=== PATIENT | female | born 1955 | race Caucasian/White ===

== ENCOUNTER 2016-11-30 11:45 | Emergency (ER) | payer OTHER ==
[~2016-11-30] VITALS: Ht 165.1 cm; Wt 68.2 kg
[2016-11-30 12:09] VITALS: BP 129/80; PULSE 73; RESP 18; O2SAT 96
[2016-11-30] MEDS ORDERED: 0.9% Sodium Chloride 1,000 ML IV ONE (12:33)
--- NOTE | 2016-11-30 12:33 | ED.REPORT ---
HPI-General Illness Date of Service Nov 30, 2016 ED Provider: Dr. Soriano 61 year old female with nausea, cough and fever for 3 days. 2 days ago she developed vomiting and has been unable to keep down food and fluids. Pt reports dizziness with standing. She also complains of malaise and fatigue. Nursing Notes Stated Complaint: COUGH, FEVER Chief Complaint: FLU/Cold Symptoms Nursing Notes Reviewed: Yes Allergies: Coded Allergies: No Known Allergies (Unverified Allergy, Unknown, 04/15/14) Scheduled Ondansetron (Ondansetron) 8 Mg Tablet 8 MG PO TID General Time Seen by MD: 12:33 Chief Complaint Fever Hx Obtained From: Patient Arrived By: Walk-in Onset Occurred: 3 days ago Symptom Duration: Since onset Quality: Painful (diffuse) Severity: Current: Moderate Associated with: Denies: Chest pain, Shortness of breath Pertinent Negative: Relieved by nothing Past Medical History Past Medical History Pneumonia, otherwise no significant past medical history. Past Surgical History None reported Smoking History Never Smoker Social History Alcohol Use: Denies alcohol use Drug Use: Denies drug use Ambulatory Status Independent Review of Systems Full Review of Systems Constitutional: Reports: Fatigue, Fever Respiratory: Reports: Non-productive cough, Denies: Shortness of breath Cardiovascular: Denies: Chest pain GI: Reports: Nausea, Vomiting Skin: Denies Rash Neurologic: Denies: Change LOC Complete sys rev & neg: except as marked. Physical Exam Vital Signs Vital Signs Date Time Temp Pulse Resp B/P Pulse Ox O2 Delivery O2 Flow Rate FiO2 11/30/16 15:53 38.1 54 15 123/77 95 11/30/16 12:09 37.8 73 18 129/80 96 Room Air Initial VS: Reviewed Head / Eyes: Atraumatic, Normocephalic, PERRL Neck: Full range of motion Extremities: Vascular intact, Neuro intact, No swelling (No edema), No tenderness Skin: Warm, Dry, No cyanosis Neurologic: Alert, Oriented, Nonfocal Psychiatric: Mood/affect normal, Behavior normal, Normal thought content General/Constitutional: Awake, Alert Appears fatigued ENT: Airway patent Mouth: Positive: Mucous membranes dry Respiratory / Chest: Breath sounds NL, No respiratory distress, No rales, No rhonchi, No wheezing Cardiovascular: Regular rhythm, Heart sounds NL, Cap refill not delayed, Peripheral circulation NL Heart Rate / Rhythm: Positive: Tachycardia (mildly) Abdomen: Soft, Non-tender, No guarding, No rebound Interpretation & Diagnostics Lab Results Interpretation Result Diagram: 11/30/16 1245 11/30/16 1245 Test 11/30/16 12:45 White Blood Count 6.0th/mm3 (3.8-10.1) Red Blood Count 4.63mil/mm3 (3.90-5.20) Hemoglobin 14.2g/dL (12.0-15.6) Hematocrit 42.2% (35.0-46.0) Mean Corpuscular Volume 91.1fL (81-100) Mean Corpuscular Hemoglobin 30.7pg (27.0-35.0) Mean Corpuscular Hemoglobin Concent 33.6% (32.0-37.0) Red Cell Distribution Width 13.9% (12.3-15.4) Platelet Count 154bil/L (150-400) Neutrophils (%) (Auto) 77.0% (40-74) Lymphocytes (%) (Auto) 11.4% (14-46) Monocytes (%) (Auto) 11.4% (4-12) Eosinophils (%) (Auto) 0% (0-5) Basophils (%) (Auto) 0.2% (0-3) Sodium Level 140mEq/L (134-144) Potassium Level 4.0mEq/L (3.5-5.2) Chloride Level 99mEq/L (97-108) Carbon Dioxide Level 27mmol/L (18-29) Blood Urea Nitrogen 12mg/dL (8-27) Creatinine 0.58mg/dL (0.57-1.00) Estimat Glomerular Filtration Rate 151mL/min (>59) Glucose Level 94mg/dL (60-99) Calcium Level 8.9mg/dL (8.5-10.1) Magnesium Level 1.9mg/dL (1.6-2.6) Total Bilirubin 0.4mg/dL (0.0-1.2) Aspartate Amino Transf (AST/SGOT) 21U/L (0-50) Alanine Aminotransferase (ALT/SGPT) 13U/L (0-32) Alkaline Phosphatase 55U/L (25-165) Troponin T < 0.010ug/L (0.0-0.011) Total Protein 6.9g/dL (6.4-8.4) Albumin 3.9g/dL (3.4-5.0) Lipase 27U/L (13-60) Hold Arias Top Tube Received (Received) Lab Results Interpretation: + Flu A ECG Interpretation Time: 12:50 Interpreted by: ED physician Normal ECG Interpretation: Normal rate (65), Normal sinus rhythm, No acute ischemic changes Re-Eval/Medical Decision Time of Eval: 13:43 Re-Evaluation/Progress Note: Pt updated of labs. Discussed plan for discharge and follow up. All questions addressed. Counseled Regarding: Diagnosis, Lab results, Need for follow-up, When/why to return to ED Discharge & Departure Primary Impression: Influenza Disposition: Home Discharge Condition All VS Reviewed: Yes Condition: Improved Patient Instructions: Acute Nausea and Vomiting (ED), Influenza (ED) Additional Instructions: You can use Zofran as directed for nausea and vomiting. Your labs are reasurring. You do have Influenza. Try and keep the fluids in. I hope you feel better soon! Referrals: Johana Becerra (PCP) (Family) Scribe Attestation Portions of this note were transcribed by Camille Quevedo. I, (Thea Soriano MD ) personally performed the history, physical exam and medical decision-making; I reviewed and confirmed the accuracy of the information in the transcribed note. Signed by: Camille Quevedo. 11/30/2016, 3639 copies to: Johana Becerra Shawna L MD Nov 30, 2016 12:33 Camille Quevedo Nov 30, 2016 13:48
[2016-11-30] MEDS ORDERED: Ondansetron 2 mg/mL 2 mL Inj IVPUSH ONE (12:35)
[2016-11-30] MEDS ORDERED: Ondansetron 2 mg/mL 2 mL Inj IVPUSH PRN (12:35)
[2016-11-30 12:54] LABS: BASOPHILS % (AUTO) 0.2 % (0-3); EOSINOPHILS % (AUTO) 0 % (0-5); MONOCYTES % (AUTO) 11.4 % (4-12); Mean Corpuscular Hemoglobin 30.7 pg (27.0-35.0); Mean Corpuscular Volume 91.1 fL (81-100); Platelet Count 154 bil/L (150-400)
--- NOTE | 2016-11-30 13:02 | DRSVH ---
PROCEDURE: X-RAY CHEST, TWO VIEWS ([id number]) INDICATIONS: COUGH, FEVER TECHNIQUE: 2 views of the chest were acquired. COMPARISON: 01/24/2010 FINDINGS: Surgical changes and devices: None. Lungs and pleura: No pleural effusions or pneumothorax. Lungs are clear. Mediastinum: Mediastinal contours are normal. Heart size is normal. Bones and chest wall: There is a 3.3 cm rim calcification overlying the gastric air bubble beneath t he left hemidiaphragm. This is far posterior on the lateral view. It appears unchanged from the 2010 exam. No suspicious bony abnormalities. Soft tissues appear unremarkable. IMPRESSION: 1. No acute cardiopulmonary abnormality. 2. Chronic rim calcification left upper quadrant posteriorly. The finding could represent calcified a drenal adenoma, exophytic renal cyst, pancreatic cyst, gastric diverticulum or calcified aneurysm. Dictated by: Brayan Mann M.D. on 11/30/2016 at 13:00 Approved by: Brayan Mann M.D. on 11/30/2016 at 13:00
[2016-11-30 13:30] LABS: Lipase 27 U/L (13-60); Magnesium 1.9 mg/dL (1.6-2.6)
[2016-11-30 13:34] LABS: TROPONIN T < 0.010 ug/L (0.0-0.011)
[2016-11-30] MEDS ORDERED: Ondansetron 8 mg ODT Tablet PO ONE (13:50)
[2016-11-30] MEDS ORDERED: ONDA-54 PO (15:52)
[2016-11-30 15:53] VITALS: BP 123/77; PULSE 54; RESP 15; O2SAT 95
== END 2016-11-30 16:30 | disposition home or self-care (01) ==
LOC: EDBD 11:45 → SED 11:45 → EDUNIT# 11:45 → SED 16:30
DX: J11.1 Influenza due to unidentified influenza virus with other respiratory manifestations (principal)
CPT/HCPCS: 36415; 71020; 80053; 83690; 83735; 84484; 85025; 87804; 93005; 96360; 99285; J7030

== ENCOUNTER 2017-08-21 06:13 | Emergency (ER) | payer OTHER ==
[~2017-08-21] VITALS: Ht 165.1 cm; Wt 65.9 kg
[~2017-08-21 06:13] MED LIST: ONDA-54 PO
[2017-08-21 06:17] VITALS: BP 117/80; PULSE 63; RESP 18; O2SAT 98
--- NOTE | 2017-08-21 06:27 | ED.REPORT ---
HPI-Extremity Problem Lower Date of Service Aug 21, 2017 ED Provider: Thea Soriano MD The pt is a 61 y/o female presenting to the ED c/o R foot pain. The pt fell yesterday, had x-rays taken at the [facility] in [place] and they were unsure if it is broken. The pain was severe enough to cause her to be unable to sleep last night. She reports the pain as "shooting", being worse on the medial side of her great toe and is unable to move it. Denies R knee or R hip pain. The pt slipped down the stairs yesterday at 0900 to initially cause the injury. The pt has used ice and 10 ibuprofen throughout the day yesterday for the pain. Nursing Notes Stated Complaint: PAIN IN RT FOOT AFTER FALL Chief Complaint: R foot pain Nursing Notes Reviewed: Yes Allergies: Coded Allergies: No Known Allergies (Unverified Allergy, Unknown, 08/21/17) Scheduled Ondansetron (Ondansetron) 8 Mg Tablet 8 MG PO TID Scheduled PRN oxyCODONE-Acetaminophen 5-325 mg (oxyCODONE-Acetaminophen 5-325 mg) 1 Each Tablet 1-2 TAB PO Q6H PRN PRN For Pain General Time Seen by MD: 06:25 Chief Complaint Other (R foot pain ) Hx Obtained From: Patient Arrived By: Walk-in Onset Occurred: Yesterday Symptom Duration: Since onset Recent Healthcare: No recent hospitalization, Recent doctor visit Similar Sx Previous: No Past Medical History Past Medical History Pneumonia, otherwise no significant past medical history. AVM w/ treatment in 2009 Past Surgical History None reported Smoking History Never Smoker Social History Alcohol Use: Denies alcohol use Drug Use: Denies drug use Ambulatory Status Independent Review of Systems + Decreased ROM of the R great toe; Denies R knee or R hip pain; Musculoskeletal: Reports: Joint pain (R foot ) Complete sys rev & neg: except as marked. Physical Exam Initial Vital Signs Vital Signs (First) Date Time Temp Pulse Resp B/P Pulse Ox O2 Delivery O2 Flow Rate FiO2 08/21/17 06:17 36.8 63 18 117/80 98 Room Air Initial VS: Reviewed General/Constitutional: Well-developed, Well-nourished Head / Eyes: Atraumatic, Normocephalic, PERRL ENT: Mucous membranes moist, Conjunctiva normal, No scleral icterus Neck: Supple, Non-tender, Full range of motion Respiratory: Breath sounds normal, Clear to auscultation, No respiratory distress Cardiovascular: Regular rate & rhythm, Heart sounds normal, Intact distal pulses Neurologic: Alert, Oriented, Nonfocal Psychiatric: Mood/affect normal, Behavior normal, Normal thought content Lower Extremity / Pelvis / MS: No deformity, Neurologic intact, Vascular intact Ankle / Foot: No deformity, Neurologic intact, Vascular intact R great toe and 2nd toe are inflamed w/ ecchymosis and tenderness Interpretation & Diagnostics X-Ray Interpretation Xray Interpretation: IMPRESSION: 1. Mildly displaced fracture laterally in the 1st metatarsal head of indeterminate acuity. 2. Moderate osteophytic changes at the 1st metatarsophalangeal and interphalangeal joints. Dictated by: Bossman Nuñez M.D. on 08/21/2017 at 8:46 Approved by: Bossman Nuñez M.D. on 08/21/2017 at 8:54 X-Ray Ordered: Foot right Interpretation / Wet Read by: Interpret - Radiologist Re-Eval/Medical Decision Source of Hx: Old records Re-Evaluation/Progress #1: Time of Eval: 08:34 Re-Evaluation/Progress Note: Pt rechecked and is feeling better. Re-Evaluation/Progress #2: Time of Eval: 09:04 Re-Evaluation/Progress Note: Informed pt of imaging results. Informed pt of plan for treatment. Pt understands and agrees with plan for treatment. F/U instructions and RTER warnings given. All questions addressed. Counseled Regarding: Diagnosis, Need for follow-up, When/why to return to ED Discharge & Departure Impression: Primary Impression: Fracture of first metatarsal bone of right foot Encounter type: initial encounter Fracture type: closed Physeal involvement : unspecified Qualified Code: S92.311A - Displaced fracture of first metatarsal bone, right foot, initial encounter for closed fracture Disposition: Home Discharge Condition All VS Reviewed: Yes Condition: Stable Additional Instructions: Thank for you entrusting us with your care today. Your x-ray shows a fractured metatarsal. It is right at the area that is most tender. It does NOT appear to extend into the joint itself. It is a stable fracture so you can bear weight as you can tolerate. It will take about 6 weeks for it to heal. Ice and elevation will help with the pain and swelling. Crutches will also help ensure that you don't fall and injure your foot further. I recommend two Ibuprofen and one Percocet for severe pain, and two Ibuprofen and 1 Tylenol for moderate pain. You can call the orthopedist today for a follow up appointment sometime next week. Please return to the emergency department if you experience any new or worsening symptoms. I hope you feel better soon. Referrals: Aleksandar Truong MD Scribe Attestation Portions of this note were transcribed by Mulugeta Galeana. I, Dr. Soriano personally performed the history, physical exam and medical decision-making; I reviewed and confirmed the accuracy of the information in the transcribed note. copies to: Aleksandar Truong MD, Shawna L MD Aug 21, 2017 06:27 Mulugeta Galeana Aug 21, 2017 06:29
[2017-08-21] MEDS ORDERED: oxyCODONE-Acetamin 5-325 mg Tablet PO ONE (06:45)
--- NOTE | 2017-08-21 08:55 | DRSVH ---
PROCEDURE: X-RAY RIGHT FOOT COMPLETE, MINIMUM THREE VIEWS ([id number]) INDICATIONS: trauma TECHNIQUE: 3 views of the foot were acquired. COMPARISON: None. FINDINGS: Bones: There is a mildly displaced longitudinal fracture within the lateral aspect of the 1st metata rsal head of indeterminate acuity. Moderate osteophytic changes are demonstrated at the 1st metatars ophalangeal joint with osteophytosis, joint space narrowing, and subchondral sclerosis. There is als o moderate degeneration of the 1st interphalangeal joint. Soft tissues: There is mild periarticular soft tissue swelling at the 1st metatarsophalangeal joint. IMPRESSION: 1. Mildly displaced fracture laterally in the 1st metatarsal head of indeterminate acuity. 2. Moderate osteophytic changes at the 1st metatarsophalangeal and interphalangeal joints. Dictated by: Bossman Nuñez M.D. on 08/21/2017 at 8:46 Approved by: Bossman Nuñez M.D. on 08/21/2017 at 8:54
[2017-08-21] MEDS ORDERED: OXYC1TAB24 PO (09:14)
== END 2017-08-21 09:36 | disposition home or self-care (01) ==
LOC: SED 06:13
DX: S92.311A Displaced fracture of first metatarsal bone, right foot, initial encounter for closed fracture (principal); W10.9XXA Fall (on) (from) unspecified stairs and steps, initial encounter; Y93.89 Activity, other specified; Y92.89 Other specified places as the place of occurrence of the external cause; Y99.8 Other external cause status; Z87.01 Personal history of pneumonia (recurrent); Z72.820 Sleep deprivation